=== PATIENT | female | born 1965 | race Caucasian/White ===

== ENCOUNTER 2018-06-13 09:24 | Emergency (ER) | payer BC ==
[~2018-06-13] VITALS: Ht 170.2 cm; Wt 36.8 kg
[2018-06-13 09:33] VITALS: TEMP 98
[2018-06-13 10:20] LABS: BASO % 0.6 % (0.0-2.0); EOS % 0.6 % (0-4.0); GRAN # 2.9 (1.4-6.5); HEMOGLOBIN 11.6 g/dl (12.5-16.0); LYMPH # 1.4 (1.2-3.4); MEAN CELL VOLUME 95 fl (80.0-100.0); MEAN CORPUSCULAR HEMOGLOBIN 31 pg (27.0-31.0); MEAN CORPUSCULAR HGB CONC 33 g/dl (33.0-37.0); MONO # 0.5 (0.1-0.6); MONO % 10.6 % (1.7-9.3); PLATELET COUNT 176 K/mm3 (130-400); RED BLOOD COUNT 3.74 M/mm3 (4.10-5.30); REDCELL DISTRIBUTION WIDTH-CV 15.8 % (11.5-14.5)
[2018-06-13 10:21] LABS: HEMATOCRIT 35.4 % (37.0-47.0)
[2018-06-13 11:13] LABS: ALANINE AMINOTRANSFERASE 36 U/L (9-52); ALBUMIN 3.9 gm/dL (3.5-5.0); ALKALINE PHOSPHATASE 75 U/L (50-136); ANION GAP 4 mmol/L (7-16); BILIRUBIN,TOTAL 0.7 mg/dL (0.0-1.0); CALCIUM 9.5 mg/dL (8.4-10.2); CARBON DIOXIDE 30 mmol/L (22-30); CHLORIDE 105 mmol/L (98-107); CREATININE, serum 0.88 (0.52-1.25); GLUCOSE 88 mg/dL (74-106); SODIUM 139 mmol/L (137-145); TOTAL PROTEIN 6.7 gm/dL (6.4-8.2)
[2018-06-13 11:45] LABS: COLLECTION METHOD CLEAN CATCH
[2018-06-13 11:47] LABS: C-REACTIVE PROTEIN < 0.5 mg/dL (0.0-0.9)
[2018-06-13 11:49] LABS: AST,SGOT 39 U/L (15-37); POTASSIUM 4.2 mmol/L (3.4-5.0)
[2018-06-13 11:50] LABS: BLOOD UREA NITROGEN 25 mg/dL (7-17)
[2018-06-13 11:57] LABS: MUCOUS Present /lpf; PH 7 (5-8); SQUAMOUS EPITHELIAL 0-2 /hpf; URINE APPEARANCE Hazy; URINE BACTERIA None Seen /hpf; URINE BILIRUBIN Negative (NEGATIVE); URINE BLOOD Negative (NEGATIVE); URINE COLOR Yellow; URINE GLUCOSE Negative (NEGATIVE); URINE KETONE Negative (NEGATIVE); URINE LEUKOCYTE ESTERASE Negative (NEGATIVE); URINE NITRATE Negative (NEGATIVE); URINE PROTEIN(semi-quant) Negative (NEGATIVE); URINE RBC 0-2 /hpf; URINE UROBILINOGEN Negative (NEGATIVE)
[2018-06-13 14:02] VITALS: BP 107/79; PULSE 56
== END 2018-06-13 14:04 | disposition home or self-care (01) ==
LOC: COL.ER 09:24
PROVIDERS: Emergency Medicine
DX: E46 Unspecified protein-calorie malnutrition (principal); M34.1 CR(E)ST syndrome

== ENCOUNTER → 2018-09-14 | Outpatient (CLI) | payer BC | LOC: COL.RAD 09-11 08:15 | DX: R63.4 Abnormal weight loss (principal); R11.0 Nausea; R10.9 Unspecified abdominal pain; Z53.8 Procedure and treatment not carried out for other reasons ==

== ENCOUNTER 2018-10-13 21:08 | Inpatient (IN) | payer BC ==
[~2018-10-13] VITALS: Ht 170.2 cm; Wt 44.5 kg
[2018-10-13 21:46] LABS: BASO % 0.3 % (0.0-2.0); EOS % 0.2 % (0-4.0); GRAN # 3.6 (1.4-6.5); GRAN % 61.3 % (42.2-75.2); HEMATOCRIT 48.6 % (37.0-47.0); LYMPH % 33.4 % (20.0-51.0); MEAN CELL VOLUME 96 fl (80.0-100.0); MEAN CORPUSCULAR HEMOGLOBIN 32 pg (27.0-31.0); MEAN CORPUSCULAR HGB CONC 33 g/dl (33.0-37.0); MEAN PLATELET VOLUME 12.7 fl (7.4-10.4); MONO # 0.2 (0.1-0.6); MONO % 3.9 % (1.7-9.3); PLATELET COUNT 185 K/mm3 (130-400); RED BLOOD COUNT 5.08 M/mm3 (4.10-5.30); REDCELL DISTRIBUTION WIDTH-CV 14.2 % (11.5-14.5)
[2018-10-13 21:58] LABS: ALANINE AMINOTRANSFERASE 198 U/L (9-52); ALBUMIN 4.3 gm/dL (3.5-5.0); ALKALINE PHOSPHATASE 97 U/L (50-136); ANION GAP 19 mmol/L (7-16); AST,SGOT 232 U/L (15-37); BILIRUBIN,TOTAL 1.8 mg/dL (0.0-1.0); BLOOD UREA NITROGEN 80 mg/dL (7-17); CALCIUM 10.6 mg/dL (8.4-10.2); CARBON DIOXIDE 18 mmol/L (22-30); CHLORIDE 106 mmol/L (98-107); CREATININE, serum 1.01 (0.52-1.25); GLUCOSE 49 mg/dL (74-106); MAGNESIUM 2.4 mg/dL (1.6-2.3); PHOSPHOROUS 5.3 mg/dL (2.5-4.5); POTASSIUM 4.5 mmol/L (3.4-5.0); SODIUM 143 mmol/L (137-145); TOTAL PROTEIN 6.6 gm/dL (6.4-8.2)
[2018-10-13 22:00] LABS: C-REACTIVE PROTEIN < 0.5 mg/dL (0.0-0.9)
[2018-10-13 22:52] LABS: ERYTHROCYTE SEDIMENTATION RATE 1 mm/hr (0-30)
[2018-10-13 23:53] LABS: ARTERIAL BLD GAS O2 SATURATION 96.3 % (92-100); ARTERIAL BLD GAS TCO2 CT 22.9; ARTERIAL BLOOD GAS BASE EXCESS -4.8 (-2-2); ARTERIAL BLOOD GAS HCO3 21.5 meq/L (22-26); ARTERIAL BLOOD GAS PCO2 44.5 mmHg (35-45); ARTERIAL BLOOD GAS PO2 103.8 mmHg (80-100)
[2018-10-14] VITALS (11 sets, daily range): BP systolic 78–134; BP diastolic 52–71; PULSE 36–65; TEMP 33.5
--- NOTE | 2018-10-14 00:06 | NUR ---
Arrived to the unit via stretcher. Assisted to ICU bed and attached to all monitors. Assessment complete; left foot noted to have purple to red discoloration which patient states is due to her Raynauds. Extremities are cool to touch. Pedal pulses auscultated via Dopplar. Patient reports extreme tenderness in feet, especially in the left. Tips of fingers are reddened. Right hand has some reddened spots of discoloration. Patient is alert and oriented but speech is slow and very quiet. Often required to ask patient to repeat herself. Patient is extemely malnourished and thin. Hand grasps equal but weak. Reddened intact and blanching area noted to coccyx. Core temp is 92.1. Bear Huggar in place. Will continue to monitor.
[2018-10-14 00:13] LABS: CALCIUM 9.2 mg/dL (8.4-10.2); CREATININE, serum 0.89 (0.52-1.25); MAGNESIUM 2.1 mg/dL (1.6-2.3); POTASSIUM 4.1 mmol/L (3.4-5.0)
[2018-10-14 00:14] LABS: PHOSPHOROUS 4.3 mg/dL (2.5-4.5)
[2018-10-14 00:17] LABS: INR 0.9 (0.8-3.0); PROTHROMBIN TIME 10.5 SECONDS (9.7-12.8)
[2018-10-14 00:20] LABS: PARTIAL THROMBOPLASTIN TIME 31.7 SECONDS (26.0-37.0)
[2018-10-14 00:23] LABS: TROPONIN-I 0.025 ng/mL (0.000-0.035)
--- NOTE | 2018-10-14 01:45 | NUR ---
Hospitalist at bedside to discuss code status with patient and mother. Full code status at this time.
--- NOTE | 2018-10-14 02:00 | NUR ---
Patient frequently becomes tearful. Will state that she is uncomfortable due to dry mouth, position, hunger etc, however when staff makes an attempt to find a solution to the complaint such as oral gel for dryness, mouth swab or a pillow for back discomfort patient will refuse and make statements such as "it won't work" or "I can't". Will continue to attemt to assist patient as tolerated.
[2018-10-14 02:39] LABS: CALCIUM 9.4 mg/dL (8.4-10.2); CREATININE, serum 0.93 (0.52-1.25); MAGNESIUM 2.1 mg/dL (1.6-2.3); PHOSPHOROUS 3.9 mg/dL (2.5-4.5); POTASSIUM 4.2 mmol/L (3.4-5.0)
[2018-10-14 03:10] LABS: THYROID STIMULATING HORMONE 0.729 uIU/mL (0.465-4.680)
--- NOTE | 2018-10-14 03:30 | NUR ---
ER nurse reported that patient stated she had had suicidal thoughts, but was not planning and did not want to commit suicide. This nurse asked patient about that statement and asked if she was still having suicidal thoughts or thoughts of self-harm. Patient stated she did not acutally want to commit suicide or harm herself, she just wanted the "pain to go away". Reported patient's statements to the hospitalist.
--- NOTE | 2018-10-14 03:31 | NUR ---
Patient complaining about Bear Hugger and requesting nurse to remove it. Re-educated regarding need to keep Bear Hugger on to get temperature to a normal level. Temp currently 96.3 via temp rowley. Will re-assess reducing heat when Temp is at a normal level.
[2018-10-14 04:22] LABS: BASO % 0.2 % (0.0-2.0); EOS % 0.1 % (0-4.0); GRAN # 6.5 (1.4-6.5); GRAN % 72.4 % (42.2-75.2); HEMATOCRIT 36.1 % (37.0-47.0); HEMOGLOBIN 12.1 g/dl (12.5-16.0); LYMPH # 1.9 (1.2-3.4); LYMPH % 21.1 % (20.0-51.0); MEAN CELL VOLUME 94 fl (80.0-100.0); MEAN CORPUSCULAR HEMOGLOBIN 32 pg (27.0-31.0); MEAN CORPUSCULAR HGB CONC 34 g/dl (33.0-37.0); MEAN PLATELET VOLUME 12.1 fl (7.4-10.4); MONO # 0.5 (0.1-0.6); MONO % 5.9 % (1.7-9.3); PLATELET COUNT 135 K/mm3 (130-400); RED BLOOD COUNT 3.83 M/mm3 (4.10-5.30); REDCELL DISTRIBUTION WIDTH-CV 14.1 % (11.5-14.5)
[2018-10-14 04:32] LABS: CREATININE, serum 0.82 (0.52-1.25); PHOSPHOROUS 3.6 mg/dL (2.5-4.5); POTASSIUM 4.2 mmol/L (3.4-5.0)
[2018-10-14 05:55] LABS: ARTERIAL BLD GAS O2 SATURATION 96.8 % (92-100); ARTERIAL BLD GAS TCO2 CT 28.1; ARTERIAL BLOOD GAS BASE EXCESS 2.2 (-2-2); ARTERIAL BLOOD GAS HCO3 26.8 meq/L (22-26); ARTERIAL BLOOD GAS PCO2 41.8 mmHg (35-45); ARTERIAL BLOOD GAS PO2 101.3 mmHg (80-100); ARTERIAL BLOOD GAS pH 7.43 (7.35-7.45)
--- NOTE | 2018-10-14 06:30 | NUR ---
No urine output noted from Rowley placed in ER. Hospitalist aware. Bladder scan showed >300 ml. Rowley checked and did not appear to be in the urethra. Temp sensing rowley removed and new rowley catheter replaced. received clear yellow urine output upon placement. Axillary temp 97.5 at this time. Will continue to monitor.
--- NOTE | 2018-10-14 07:00 | NUR ---
ALAYNA Hewitt at bedside at this time.
[2018-10-14 07:54] LABS: CALCIUM 8.9 mg/dL (8.4-10.2); CREATININE, serum 0.83 (0.52-1.25); PHOSPHOROUS 3.4 mg/dL (2.5-4.5); POTASSIUM 4.3 mmol/L (3.4-5.0)
--- NOTE | 2018-10-14 08:00 | NUR ---
Dr. Young rounds at this time. Orders as entered CPOE.
[2018-10-14 08:12] LABS: COLLECTION METHOD CLEAN CATCH
[2018-10-14 08:27] LABS: HYALINE CAST >12 /lpf; MUCOUS Present /lpf; PH 5 (5-8); SQUAMOUS EPITHELIAL None Seen /hpf; URINE APPEARANCE Hazy; URINE BACTERIA Rare /hpf; URINE BILIRUBIN Negative (NEGATIVE); URINE BLOOD 2+ (NEGATIVE); URINE COLOR Yellow; URINE GLUCOSE 1+ (NEGATIVE); URINE KETONE Trace (NEGATIVE); URINE LEUKOCYTE ESTERASE Negative (NEGATIVE); URINE NITRATE Negative (NEGATIVE); URINE PROTEIN(semi-quant) Negative (NEGATIVE); URINE UROBILINOGEN Negative (NEGATIVE)
--- NOTE | 2018-10-14 08:30 | NUR ---
Patient with noted bradycardia on bedside monitor. See completed EKG and telemetry record. Marcelina, WEATHERSEAL TECHNICIAN at bedside and VORB for intervention. Patient attached to zoll leads and defib pads at this time as precautionary measure. Patient remains alert and oriented. Care ongoing.
--- NOTE | 2018-10-14 08:31 | NUR ---
Neosynephrine gtt stopped per VORB by ALAYNA Hewitt at bedside secondary to patient's bradycardia.
--- NOTE | 2018-10-14 08:34 | NUR ---
Dopamine gtt started a 2mcg/kg/hr per VORB from ALAYNA Hewitt at bedside.
--- NOTE | 2018-10-14 08:39 | NUR ---
Dopamine titrated per VORB by ALAYNA Hewitt.
--- NOTE | 2018-10-14 08:47 | NUR ---
Dr. Gonzalez present for consult. Orders as entered CPOE and VORB.
--- NOTE | 2018-10-14 08:49 | NUR ---
Dopamine titrated per bedside VORB by ALAYNA Hewitt.
--- NOTE | 2018-10-14 08:58 | NUR ---
Dr. Kahn present for consult.
[2018-10-14 09:58] LABS: CALCIUM 8.7 mg/dL (8.4-10.2); CREATININE, serum 0.81 (0.52-1.25); MAGNESIUM 1.9 mg/dL (1.6-2.3); PHOSPHOROUS 3.1 mg/dL (2.5-4.5)
--- NOTE | 2018-10-14 10:17 | NUR ---
Dr. Smith present for consult. Orders as entered CPOE.
[2018-10-14 10:23] LABS: CALCIUM 8.4 mg/dL (8.4-10.2); CREATININE, serum 0.79 (0.52-1.25); MAGNESIUM 1.9 mg/dL (1.6-2.3); POTASSIUM 3.9 mmol/L (3.4-5.0)
[2018-10-14 13:15] LABS: CALCIUM 8.6 mg/dL (8.4-10.2); CREATININE, serum 0.76 (0.52-1.25); MAGNESIUM 2.6 mg/dL (1.6-2.3); PHOSPHOROUS 2.9 mg/dL (2.5-4.5); POTASSIUM 4.1 mmol/L (3.4-5.0)
[2018-10-14 15:12] LABS: CALCIUM 8.7 mg/dL (8.4-10.2); CREATININE, serum 0.82 (0.52-1.25); MAGNESIUM 2.4 mg/dL (1.6-2.3); PHOSPHOROUS 2.8 mg/dL (2.5-4.5); POTASSIUM 4.1 mmol/L (3.4-5.0)
[2018-10-14 16:27] LABS: CALCIUM 8.5 mg/dL (8.4-10.2); CREATININE, serum 0.72 (0.52-1.25); MAGNESIUM 2.2 mg/dL (1.6-2.3); PHOSPHOROUS 2.9 mg/dL (2.5-4.5); POTASSIUM 3.9 mmol/L (3.4-5.0)
--- NOTE | 2018-10-14 17:17 | NUR ---
Dr. Julio notified of consult.
[2018-10-14 19:28] LABS: CALCIUM 8.5 mg/dL (8.4-10.2); CREATININE, serum 0.69 (0.52-1.25); MAGNESIUM 2.3 mg/dL (1.6-2.3); PHOSPHOROUS 2.8 mg/dL (2.5-4.5); POTASSIUM 3.8 mmol/L (3.4-5.0)
--- NOTE | 2018-10-14 19:45 | NUR ---
Assessment complete; patient alert and oriented. Able to follow all commands correctly. When asked questions patient would not verbalize response, but wanted to write. Able to write answers to questions appropriately. Reports discomfort from NG tube. Re-educated on importance of feeding tube for nutrition. Family at bedside and encouraged patient to be cooperative and accepting of cares. Repositioned at this time. 3 pea sized reddened areas along spine, no redness noted to coccyx. Repositioning q 2hrs to prevent bed sores.
[2018-10-14 20:53] LABS: CALCIUM 8.6 mg/dL (8.4-10.2); CREATININE, serum 0.65 (0.52-1.25); MAGNESIUM 2.2 mg/dL (1.6-2.3); PHOSPHOROUS 2.6 mg/dL (2.5-4.5); POTASSIUM 4.3 mmol/L (3.4-5.0)
--- NOTE | 2018-10-14 21:05 | NUR ---
HR occasionally down to 37-39; Dopamine titrated up to 12 mcg/kg/min. Current BP 111/65. Hospitalist notified; requested to call cardiology.
[2018-10-15] VITALS (8 sets, daily range): BP systolic 81–121; BP diastolic 54–74; PULSE 36–45; TEMP 97–97.8
--- NOTE | 2018-10-15 00:10 | NUR ---
Patient alert and oriented. Has been more receptive to care this shift than the previous night. Allowing nurse to repostition and appears to comprehend the need for the cares and interventions being provided in her care. .
[2018-10-15 00:27] LABS: CALCIUM 8.6 mg/dL (8.4-10.2); CREATININE, serum 0.64 (0.52-1.25); MAGNESIUM 2.1 mg/dL (1.6-2.3); PHOSPHOROUS 2.4 mg/dL (2.5-4.5); POTASSIUM 3.8 mmol/L (3.4-5.0)
--- NOTE | 2018-10-15 02:15 | NUR ---
Assisted with repositioning. Patient reporting discomfort in throat from NG tube, asking if it can come out. This nures re-educated regarding need to keep in the NG to deliver nutrition to help with gaining strength and improving outcome. Stated that NG will need to be in place until another route for nutrition can be established.
--- NOTE | 2018-10-15 04:05 | NUR ---
Patient had 3 second pause. HR returned to baseline low 40's afterwards. BP stable. Hospitalist notified. Will continue to monitor.
[2018-10-15 04:22] LABS: HEMOGLOBIN 11.9 g/dl (12.5-16.0); MEAN CELL VOLUME 95 fl (80.0-100.0); MEAN CORPUSCULAR HEMOGLOBIN 32 pg (27.0-31.0); MEAN CORPUSCULAR HGB CONC 34 g/dl (33.0-37.0); MEAN PLATELET VOLUME 11.2 fl (7.4-10.4); PLATELET COUNT 133 K/mm3 (130-400); RED BLOOD COUNT 3.73 M/mm3 (4.10-5.30); REDCELL DISTRIBUTION WIDTH-CV 14.3 % (11.5-14.5)
[2018-10-15 04:27] LABS: HEMATOCRIT 35.5 % (37.0-47.0)
[2018-10-15 04:35] LABS: ALBUMIN 3.1 gm/dL (3.5-5.0); BILIRUBIN,TOTAL 1.3 mg/dL (0.0-1.0); CALCIUM 8.6 mg/dL (8.4-10.2); CREATININE, serum 0.6 (0.52-1.25); PHOSPHOROUS 2.9 mg/dL (2.5-4.5); POTASSIUM 4.1 mmol/L (3.4-5.0); TOTAL PROTEIN 5.4 gm/dL (6.4-8.2)
[2018-10-15 04:55] LABS: PRE ALBUMIN 14.8 mg/dL (17.6-36.0)
--- NOTE | 2018-10-15 05:00 | NUR ---
Assisted with bedbath. Tolerated well.
[2018-10-15 05:15] LABS: BAND 9 % (0-10); LYMPHOCYTE 4 % (20.0-51.0); NEUTROPHILS 84 % (42.0-75.2); PLATELET ESTIMATE NORMAL (NORMAL)
--- NOTE | 2018-10-15 07:35 | NUR ---
Bedside report given to EMIL Barnes and EMIL Wiley. Patient care transfered.
--- NOTE | 2018-10-15 09:54 | NUR ---
BEBETO met with the patient and patient's mother, Janice, to discuss discharge plan. The patient lives in [place] with her mother and father (Marcelo). She reports needing assistance with ADLs prior to hospitalization and has a cane. She states that she started declining three days ago and that her mother has been helping her with ADLs. The patient's PCP is Dr. Augustina Che and she receives her medications at the [facility]. Her mother reports no difficulties obtaining her meds. The patient does not have advanced directives in EMR, but she states she believes she has a Living Will at home. Her mother plans to look for that Living Will and then bring it to the hospital. The patient and her mother were interested in obtaining a form for DPOA-HC. BEBETO provided. PT/OT and a psych consult have been ordered. The patient may tentatively have a peg tube placed. SW to continue to follow to ensure a safe discharge.
--- NOTE | 2018-10-15 10:11 | NUR ---
Pt tube feed residual less than five. Tube feed increased to 20ml/hr. Will continue to montior.
--- NOTE | 2018-10-15 12:28 | NUR ---
First visit from the channel cementer outsole machine. No needs right now.
[2018-10-15 19:08] LABS: CALCIUM 8.7 mg/dL (8.4-10.2); CREATININE, serum 0.51 (0.52-1.25); MAGNESIUM 1.9 mg/dL (1.6-2.3); PHOSPHOROUS 2.1 mg/dL (2.5-4.5); POTASSIUM 3.5 mmol/L (3.4-5.0)
--- NOTE | 2018-10-15 20:30 | NUR ---
Patient reporting discomfort from the NG tuve. Reminded that Peg tube will be placed tomorrow and NG will be removed. Family at bedside during assessment. Patient alert and cooperative during assessment, however she does not like to verbalize answers due to discomfort in throat from NG. Will give short one word answeres or attempts to answer with hand gestures if possible. Assisted with repositioning. Will continue to monitor.
[2018-10-16] VITALS (8 sets, daily range): BP systolic 84–104; BP diastolic 57–70; PULSE 36–52; TEMP 94.6–97.9
--- NOTE | 2018-10-16 00:50 | NUR ---
Assisted with repositioning, and provided tanisha-care. Tube feeding discontinued due to NPO status at midnight. Tolerating tube feedings well with minimal residual. Will continue to monitor.
--- NOTE | 2018-10-16 04:15 | NUR ---
Reporting some back discomfort; assisted to a position of comfort in bed. Also reporting pain to her left foot. States the pain is from her Reynauds and is per is usual,and comes and goes. Removed blankets from feet as patient states the weight of the blankets causes discomfort. Denies any other needs at this time. Will continue to monitor.
[2018-10-16 04:46] LABS: HEMATOCRIT 32.3 % (37.0-47.0); HEMOGLOBIN 10.6 g/dl (12.5-16.0); MEAN CELL VOLUME 96 fl (80.0-100.0); MEAN CORPUSCULAR HEMOGLOBIN 31 pg (27.0-31.0); MEAN CORPUSCULAR HGB CONC 33 g/dl (33.0-37.0); PLATELET COUNT 107 K/mm3 (130-400); RED BLOOD COUNT 3.38 M/mm3 (4.10-5.30); REDCELL DISTRIBUTION WIDTH-CV 14.5 % (11.5-14.5)
[2018-10-16 04:48] LABS: PHOSPHOROUS 2.4 mg/dL (2.5-4.5); POTASSIUM 3.9 mmol/L (3.4-5.0)
[2018-10-16 04:51] LABS: CALCIUM 8.8 mg/dL (8.4-10.2); CREATININE, serum 0.47 (0.52-1.25)
[2018-10-16 05:39] LABS: BAND 5 % (0-10); LYMPHOCYTE 1 % (20.0-51.0); NEUTROPHILS 91 % (42.0-75.2); PLATELET ESTIMATE DECREASED (NORMAL)
--- NOTE | 2018-10-16 07:16 | NUR ---
Bedside report given to EMIL Wiley. Patient care transfered.
--- NOTE | 2018-10-16 15:07 | NUR ---
The patient had a peg tube placed today, 10/16. PT/OT are still monitoring the patient's progress for recommendations. SW to continue to follow.
--- NOTE | 2018-10-16 17:10 | NUR ---
Pt's BLE are blue, red, warm, painful and swollen. Which is baseline for Pt d/t autoimmune disease. R leg less reddened and painful than left. Weak pulses palpable in both. Pt has peg site to LL abd. Dressing C/D/I. Dressing not removed d/t day 0 post op. bedside this afternoon to assess. Will keep clamped till tomorrow then can restart TF 24 hours post placement.
--- NOTE | 2018-10-16 20:23 | NUR ---
Unable to obtain oral or axillary temp. Rectal temp 94.6. Placed warm blankets. Attempted to call hospitalist, no reply.
--- NOTE | 2018-10-16 21:38 | NUR ---
Re-checked rectal temp after placing warm blankets; tara 94.7. Called hospitalst. Will place on javon huggar and warm fluids and insert a rectal temp probe.
--- NOTE | 2018-10-16 22:39 | NUR ---
Warmed fluids tara running at 42 degrees C. Nisa Butler on. Rectal temp 35.1. Will continue to monitor.
--- NOTE | 2018-10-16 23:47 | NUR ---
Notified hospitalist that patient has been hypotensive with MAPs less than 65. urine output has been less than 30/hr. Requested to change status to ICU and call cardiology.
--- NOTE | 2018-10-16 23:59 | NUR ---
Called [facility] to notify about status change to ICU.
[2018-10-17] VITALS (11 sets, daily range): BP systolic 77–104; BP diastolic 54–69; PULSE 43–61; TEMP 97.2–98.8
--- NOTE | 2018-10-17 | NUR ---
Right radial site checked; clean dry and intact with no hematoma. Pulse +2. Denies any pain or shortness of breath. Reports having an occasional brief episode of palpitations. No other complaints. Removed all air from TR band. Left in place with arm board to help as a reminer to not put weight on the wrist.
--- NOTE | 2018-10-17 00:30 | NUR ---
Rectal temp 97.5. Turned Nisa hugger down to medium setting. Assisted with repositioning. Patient follows commands and answers questions by shaking head yes or no but did not verbalize responses to this nurse.
--- NOTE | 2018-10-17 02:28 | NUR ---
Patient reported to this nurse that she "can't go on". Asked to elaborate but patient just "I'm going to ". Explained to patient that we were doing everything we can to help her get better. Although she would have to allow us to continue to intervene to help her recover. Requested to call her mom. This nurse and patient left voicemail with the mom. Awaiting a return call. Offered anxiety and pain medication but patient refused. This nurse asked if she was having any thoughs of self harm or suicidal thoughts. Patient stated that she was too weak to hurt herself. When pressed if she was having thoughts of self harm patient said "no". This nurse asked "what do you want me to do?" and patient did not respond.
--- NOTE | 2018-10-17 02:46 | NUR ---
Temp 37.3. Turned javon hugger off; will monitor how patient tolerates.
[2018-10-17 06:06] LABS: BASO % 0.1 % (0.0-2.0); GRAN # 8.1 (1.4-6.5); GRAN % 88.1 % (42.2-75.2); HEMOGLOBIN 10.3 g/dl (12.5-16.0); LYMPH # 0.5 (1.2-3.4); LYMPH % 5.8 % (20.0-51.0); MEAN CELL VOLUME 97 fl (80.0-100.0); MEAN CORPUSCULAR HEMOGLOBIN 31 pg (27.0-31.0); MEAN CORPUSCULAR HGB CONC 32 g/dl (33.0-37.0); MEAN PLATELET VOLUME 12.5 fl (7.4-10.4); MONO # 0.5 (0.1-0.6); MONO % 5.7 % (1.7-9.3); PLATELET COUNT 92 K/mm3 (130-400); RED BLOOD COUNT 3.29 M/mm3 (4.10-5.30); REDCELL DISTRIBUTION WIDTH-CV 14.5 % (11.5-14.5)
[2018-10-17 06:08] LABS: HEMATOCRIT 31.8 % (37.0-47.0)
[2018-10-17 06:20] LABS: MAGNESIUM 1.8 mg/dL (1.6-2.3)
[2018-10-17 06:25] LABS: ALBUMIN 2.6 gm/dL (3.5-5.0); CALCIUM 8.8 mg/dL (8.4-10.2); CREATININE, serum 0.53 (0.52-1.25); POTASSIUM 3.6 mmol/L (3.4-5.0); TOTAL PROTEIN 4.7 gm/dL (6.4-8.2)
--- NOTE | 2018-10-17 07:39 | NUR ---
Bedside report given to EMIL Amezquita. Patient care transfered.
--- NOTE | 2018-10-17 08:00 | NUR ---
Shift assessment complete at this time. Plan of care reviewed at bedside with patient et family. Additional time taken to address any other needs or concerns. Vitals stable at this time. Pt reports 10/10 pain, however, refuses PRN pain medication stating "I know it won't work". Will address with attending physician in rounds. Bed in low position, call light within reach, will continue to monitor.
--- NOTE | 2018-10-17 10:55 | NUR ---
BEBETO attended clinical rounds. The patient is to start peg tube feedings today, 10/17. BEBETO then followed up with the patient, patient's mother (Janice, "Darlene"), and her two aunts to discuss discharge plan. The patient's mother reports that she would like for the patient to return home with her and home health, if able to, upon discharge. The patient's two aunts report that they will help out and provide support too. BEBETO provided the patient's mother with Medicare.gov's list of home health agencies that serve [place]. The patient and patient's mother plan to look over the list. The patient did complete a DPOA-HC. She designated her mother and brother, Rohit Florence. BEBETO and the patient's RN, Alirio, witnessed the patient's signature. The patient's mother was provided with the original and some copies. A copy was placed in the patient's chart. BEBETO to continue to follow.
--- NOTE | 2018-10-17 12:00 | NUR ---
Shift reassessment complete at this time. No changes from previous assessment noted. Pt reports slight improvement in overall pain afte administration of PRN Motrin. Will continue to monitor pain management. Vitals stable at this time. on Dopamine gtt. Bed in low position, call light within reach, will continue to monitor.
--- NOTE | 2018-10-17 16:00 | NUR ---
Shift reassessment complete at this time. No changes from previous assessments noted. Vitals stable at this time. Dopamine gtt continues. Pt tolerating tube feedings well with no residual or complaints of fullness. Pt reports pain is steadily improving and denies need for any further intervention at this time. Bed in low position, call light within reach, will continue to monitor.
--- NOTE | 2018-10-17 19:19 | NUR ---
Bedside report given to EMIL Candelario.
--- NOTE | 2018-10-17 19:50 | NUR ---
Patient asssessment completed and charted at this time, please see documentation for details. patient resting in bed, denying needing cares. Famliy at bedside, will continue to monitor.
[2018-10-18] VITALS (7 sets, daily range): BP systolic 90–99; BP diastolic 58–72; PULSE 52–59; TEMP 36.5–36.6
--- NOTE | 2018-10-18 04:00 | NUR ---
Patient continues to refuse turn and refuse pain medication for throat. Reeducated, will continue to monitor.
[2018-10-18 05:13] LABS: BASO % 0.2 % (0.0-2.0); GRAN # 5.4 (1.4-6.5); GRAN % 88.3 % (42.2-75.2); HEMATOCRIT 31.9 % (37.0-47.0); HEMOGLOBIN 10.6 g/dl (12.5-16.0); LYMPH # 0.5 (1.2-3.4); LYMPH % 7.4 % (20.0-51.0); MEAN CELL VOLUME 96 fl (80.0-100.0); MEAN CORPUSCULAR HEMOGLOBIN 32 pg (27.0-31.0); MEAN CORPUSCULAR HGB CONC 33 g/dl (33.0-37.0); MEAN PLATELET VOLUME 12.4 fl (7.4-10.4); MONO # 0.2 (0.1-0.6); MONO % 3.6 % (1.7-9.3); PLATELET COUNT 87 K/mm3 (130-400); RED BLOOD COUNT 3.34 M/mm3 (4.10-5.30); REDCELL DISTRIBUTION WIDTH-CV 14.2 % (11.5-14.5)
[2018-10-18 05:25] LABS: ALBUMIN 2.5 gm/dL (3.5-5.0); CALCIUM 8.6 mg/dL (8.4-10.2); CREATININE, serum 0.55 (0.52-1.25); MAGNESIUM 1.8 mg/dL (1.6-2.3); PHOSPHOROUS 2.4 mg/dL (2.5-4.5); POTASSIUM 3.7 mmol/L (3.4-5.0); TOTAL PROTEIN 4.7 gm/dL (6.4-8.2)
[2018-10-18 05:38] LABS: BILIRUBIN UNCONJUGATED 0.9 mg/dL (0.0-1.1); BILIRUBIN,TOTAL 0.8 mg/dL (0.0-1.0)
--- NOTE | 2018-10-18 07:00 | NUR ---
REPORT RECEIVED FROM GREG STEIN. CARE ASSUMED.
--- NOTE | 2018-10-18 10:06 | NUR ---
SW attended clinical rounds. The patient has been off the dopamine drip since 1999 last night. The plan is for the patient to transfer up to the floor today, 10/18. The hospitalist discussed the possible need for post-acute rehab, depending on how the patient progresses with therapy, once she transfers up to the floor. The patient's mother reports how the patient would like to return home upon discharge. SW to continue to follow and monitor PT/OT recommendations.
--- NOTE | 2018-10-18 11:35 | NUR ---
OFFERED TO GIVE PT MOTRIN FOR GENERALIZED ACHINESS. PT REFUSED. OFFERED TO WASH PT'S HAIR AND GIVE HER A BATH. PT REFUSED AT THIS TIME. PT C/O DRY MOUTH. OFFERED SWABS WITH WATER AND MOUTH MOISTURIZER. PT REFUSED.
--- NOTE | 2018-10-18 12:09 | NUR ---
ATTEMPTED TO CALL REPORT. RN DISCHARGING A PT AT THIS TIME.
--- NOTE | 2018-10-18 12:32 | NUR ---
REPORT GIVEN TO YUMIKO STEIN ON MEDICAL FLOOR.
--- NOTE | 2018-10-18 12:53 | NUR ---
RAFI DIAZ, AND JOSE RN, BROUGHT MEDICAL FLOOR BED. PT TRANSFERRED TO MEDICAL FLOOR BED. RECTAL THERMOMETER REMOVED. PT TRANSFERRED TO MEDICAL ROOM 312 BY LIZ. PT'S BELONGINGS TRANSFERRED WITH PATIENT ALONG WITH KANGAROO PUMP AND NEW TUBE FEED AND TUBING.
--- NOTE | 2018-10-18 15:08 | NUR ---
Received report from Kailey in the ICU. Patient transported to room 312 via bed. Patient is reported to not get out of bed. She is currently laying on pressure overlay mattress. Patient is observed to be thin and frail. Skin was checked. Does have one area to left inner leg to have mepilex dressing covering it. Dressing removed, small dried, scabbed area is observed. Mother states it is a calcified area which she gets occasionally. Mother requests that area be open to air. Has no other skin issues. Feet are observed to be purple/white in color and are edematous. This is her usual appearance. Feet are elevated with pillows and patient is turned toward right side. Patient frequently moans when moved and was offered PRN pain medication and she declined stating she was tired of taking them. Lungs are clear, patient grimaces when touched with the stethoscope. Heart rate is regular. Is receiving feeding to peg tube, site is clean and dry. Abdomen is soft, bowel sounds are active. Villarreal catheter is to dependent drainage. Securement device is in place. Has IV to left AC, this was discontinued, dressing is soiled. Triple lumen IJ is noted to right, dressing is clean, dry and intact. Patient will not move for staff, states she cant. Family remains at bedside. Call light is within reach.
--- NOTE | 2018-10-18 17:35 | NUR ---
Patient remains in bed, continues to be turned. Did request motrin for generalized pain. Administered via feeding tube without difficulty. Family at bedside. Personal items and call light is within reach.
[2018-10-19 03:48] VITALS: BP 96/64; PULSE 58; TEMP 97.5
[2018-10-19 06:14] LABS: BASO % 0.2 % (0.0-2.0); EOS % 0.2 % (0-4.0); GRAN # 3.9 (1.4-6.5); GRAN % 79.5 % (42.2-75.2); HEMATOCRIT 29.5 % (37.0-47.0); HEMOGLOBIN 9.9 g/dl (12.5-16.0); LYMPH # 0.6 (1.2-3.4); LYMPH % 13.1 % (20.0-51.0); MEAN CELL VOLUME 96 fl (80.0-100.0); MEAN CORPUSCULAR HEMOGLOBIN 32 pg (27.0-31.0); MEAN CORPUSCULAR HGB CONC 34 g/dl (33.0-37.0); MEAN PLATELET VOLUME 12.9 fl (7.4-10.4); MONO # 0.3 (0.1-0.6); MONO % 6.6 % (1.7-9.3); PLATELET COUNT 87 K/mm3 (130-400); RED BLOOD COUNT 3.08 M/mm3 (4.10-5.30); REDCELL DISTRIBUTION WIDTH-CV 13.8 % (11.5-14.5)
[2018-10-19 06:24] LABS: CALCIUM 8.4 mg/dL (8.4-10.2); CREATININE, serum 0.47 (0.52-1.25); MAGNESIUM 1.8 mg/dL (1.6-2.3); PHOSPHOROUS 2.2 mg/dL (2.5-4.5); POTASSIUM 3.6 mmol/L (3.4-5.0)
[2018-10-19 07:35] VITALS: BP 97/66; PULSE 54; TEMP 97.7
--- NOTE | 2018-10-19 07:58 | NUR ---
millinery worker spoke with Nilsa, general manager road production, at [facility] as Dr Trivedi is patient's primary care provider. Nilsa states they will follow closely after discharge.
--- NOTE | 2018-10-19 10:30 | NUR ---
Patient is upset, stating that she did not want feedings or anything anymore. Wanted to have tube feeding shut off. Explained that feeding would be disconnected and tube flushed with water, she quickly stated, "no," and asked that feeding be turned down to 10 ml/hr. Notified providers of patients request.
--- NOTE | 2018-10-19 11:20 | NUR ---
Patient is in bed, parents are at bedside. Patient had verbalized that her stomach started hurting when therapy went to see her. She states she can not handle the feeding at 20 mL/hr. Was shown the amount by visualizing a comparason to a med cup. She shook her head and stated she couldn't do it and wanted the feeding shut off. I spoke with providers and they stated it could be shut off until they saw her on rounds. I gave her the option and she stated she would like it turned off. I did explain that tube would have to be flushed after disconnection, patient then changed her mind and requested amount per hour be decreased instead. She did report she was having pain at the peg insertion site and rowley. Areas cleansed and drain sponge placed to peg. Patient did not tolerate this activity well. Was also repositioned during that time. Provider is currently in to see patient.
[2018-10-19 12:10] VITALS: BP 98/60; PULSE 53; TEMP 98
[2018-10-19 17:00] VITALS: BP 103/63; PULSE 64; TEMP 98.1
[2018-10-19 19:38] VITALS: BP 104/65; PULSE 56; TEMP 98.4
[2018-10-19 23:15] VITALS: BP 102/63; PULSE 52; TEMP 98.3
[2018-10-20 03:22] VITALS: BP 99/64; PULSE 56; TEMP 97.5
[2018-10-20 07:26] VITALS: BP 106/70; PULSE 57; TEMP 98
[2018-10-20 07:38] LABS: BASO % 0.2 % (0.0-2.0); EOS % 0.4 % (0-4.0); GRAN # 3.8 (1.4-6.5); GRAN % 79.9 % (42.2-75.2); HEMOGLOBIN 10.7 g/dl (12.5-16.0); LYMPH # 0.6 (1.2-3.4); LYMPH % 13.4 % (20.0-51.0); MEAN CELL VOLUME 95 fl (80.0-100.0); MEAN CORPUSCULAR HEMOGLOBIN 32 pg (27.0-31.0); MEAN CORPUSCULAR HGB CONC 33 g/dl (33.0-37.0); MEAN PLATELET VOLUME 12.7 fl (7.4-10.4); MONO # 0.3 (0.1-0.6); MONO % 5.5 % (1.7-9.3); PLATELET COUNT 104 K/mm3 (130-400); RED BLOOD COUNT 3.37 M/mm3 (4.10-5.30); REDCELL DISTRIBUTION WIDTH-CV 13.5 % (11.5-14.5)
[2018-10-20 07:43] LABS: HEMATOCRIT 32.1 % (37.0-47.0)
[2018-10-20 07:49] LABS: CALCIUM 8.5 mg/dL (8.4-10.2); CREATININE, serum 0.52 (0.52-1.25); POTASSIUM 3.5 mmol/L (3.4-5.0)
--- NOTE | 2018-10-20 11:09 | NUR ---
Pt assessment complete. Pt laying in bed upon entry, her mother is at bedside. Pt is A/O x3, but very guarded and has minimal responses to questions. Pt winces with any touch of stethoscope. When attempting to give patient meds through her PEG tube she attempts to refuse stating "you can't put that much in my stomach at once". Explained to the patient how much she would be getting and she eventually agrees with the encouragement from her mother. Pt states she is having the "same pain" she's been having all over, PRN Motrin administered. Tube feedings infusing at 10mls/hr. PEG tube site CDI, no redness or edema present to site. Pt refusing repositioning at this time. POC discussed with patient who verbalizes understanding. No needs at this time. Call light within reach.
[2018-10-20 11:38] VITALS: BP 98/63; PULSE 55; TEMP 97.4
[2018-10-20 12:04] LABS: MAGNESIUM 1.9 mg/dL (1.6-2.3); PHOSPHOROUS 2.9 mg/dL (2.5-4.5)
--- NOTE | 2018-10-20 12:46 | NUR ---
This nurse asked patient if motrin helped relieve pain, patient states "I don't know" and does not say anything following. Explained I was giving her another bag of potassium, patient sighs and looks away. No needs, father at bedside.
--- NOTE | 2018-10-20 14:47 | NUR ---
ENCOURAGED PT TO LET NURSING GRADUALLY INCREASE TUBE FEEDING RATE PER ORDERS. PT IS RELUCTANT AND SIGHS, APPEARS TEARFUL. MOTHER AT BEDSIDE IS ENCOURAGING PT TO ATTEMPT THE INCREASED RATE. PT AND MOTHER ARE IN AGREEMENT TO INCREASE TUBE FEEDING RATE TO 15ML/HR PER PUMP. RATE INCREASED AT THIS TIME.
[2018-10-20 17:23] VITALS: BP 91/58; PULSE 54; TEMP 97.8
--- NOTE | 2018-10-20 18:26 | NUR ---
While giving patient her medication through the PEG tube, patient requesting to have her feedings turned down to 10ml/hr. Pt states "it's just a lot going into my stomach today", denies N/V. Verified with patient that the goal rate is to have feeding at 20ml/hr. Pt verbalizes understanding and requests to have it turned down. Rate decreased at this time.
[2018-10-20 19:17] VITALS: BP 93/61; PULSE 53; TEMP 97.9
--- NOTE | 2018-10-20 22:12 | NUR ---
PATIENT REPOSITIONED AND GOWN AND LINENS CHANGED. REFUSED ORAL CARE. MOANING AND CRYING DURING CARE. DENIES NEEDING MEDICATION FOR PAIN. REFUSED SCDS BILATERALLY. SEE EMAR FOR MEDICATIONS ADMINISTERED. REFUSED STOOL SOFTNER. ZERO RESIDUAL FORM PEG TUBE. DRAINAGE SPONGE CLEAN DRY AN INTACT. PATIENT DENIES C/O NAUSEA OR ABD PAIN BUT BECOMES VERY ANXIOUS WHEN MEDICATION GIVEN AND FLUSHED WITH WATER STATING "IT IS JUST TO MUCH". MEDICATION X 1 ADMINISTERED VIA PEG TUBE WITH A TOTAL OF 60 MLS OF WATER. MOTHER IN ROOM UNTIL ABOUT 2100. DENIES QUESTIONS OR CONCERNS.
[2018-10-20 23:20] VITALS: BP 104/59; PULSE 62; TEMP 97.9
[2018-10-21 03:43] VITALS: BP 99/60; PULSE 59; TEMP 97.8
[2018-10-21 06:09] LABS: EOS % 0.9 % (0-4.0); GRAN # 3.6 (1.4-6.5); GRAN % 78.8 % (42.2-75.2); HEMOGLOBIN 11.2 g/dl (12.5-16.0); LYMPH # 0.5 (1.2-3.4); LYMPH % 11.8 % (20.0-51.0); MEAN CELL VOLUME 93 fl (80.0-100.0); MEAN CORPUSCULAR HEMOGLOBIN 31 pg (27.0-31.0); MEAN CORPUSCULAR HGB CONC 34 g/dl (33.0-37.0); MEAN PLATELET VOLUME 12.1 fl (7.4-10.4); MONO # 0.4 (0.1-0.6); MONO % 8.1 % (1.7-9.3); PLATELET COUNT 127 K/mm3 (130-400); RED BLOOD COUNT 3.58 M/mm3 (4.10-5.30); REDCELL DISTRIBUTION WIDTH-CV 13.2 % (11.5-14.5)
[2018-10-21 06:10] LABS: HEMATOCRIT 33.4 % (37.0-47.0)
[2018-10-21 06:17] LABS: CALCIUM 8.4 mg/dL (8.4-10.2); CREATININE, serum 0.53 (0.52-1.25); POTASSIUM 3.6 mmol/L (3.4-5.0)
--- NOTE | 2018-10-21 08:00 | NUR ---
Pt assessment complete. Pt is laying in bed upon entry, she is A/O x3. Her breathing is even and unlabored on RA. Pt denies SOB. Pt is tearful this morning, unable to specify what's bothering her. Pt stating the feeding pump is "yelling at me, nothing is coming up but it is screaming". Pt also stating that she does not feel as if she will ever be back to a "normal person", that things are going to get "worse before they get better". Encouragement given. Discussed with patient the POC and reasoning for all the interventions that were being done, tube feeding, PT/OT, repositioning, medications etc. Explained that all of these things are done for the interest of the patient improving and gaining back her mobility and normal day funtioning. Patient in agreeance that these things are important and states she wants this for herself as well. Pt also states she is worried if she gets a pressure ulcer that it will never heal, again nutrition and respositioning discussed with her. Pt in agreeance to try and increase tube feedings through the day. No further needs at this time. Call light within reach.
[2018-10-21 08:32] VITALS: BP 98/58; PULSE 52; TEMP 97.8
[2018-10-21 12:03] VITALS: BP 105/67; PULSE 53; TEMP 97.4
--- NOTE | 2018-10-21 12:14 | NUR ---
Pt reporting her catheter is leaking, bed dry to the touch, patient states she has been holding her pee. Purpose and use of a catheter explained to the patient. Encouraged to relax her bladder and the catheter will drain. Patient agreeable to sit up in bed, put in chair position. Now has the 2cal Jevity tube feeding, agreeable to increasing rate to 15mls/hr. No needs at this time. Call light within reach.
[2018-10-21 17:24] VITALS: BP 104/64; PULSE 50; TEMP 97.5
--- NOTE | 2018-10-21 18:09 | NUR ---
This nurse spent approximately 15 minutes with the patient speaking about the tube feedings. Pt requesting to have the tube feedings turned off. Pt stating "my family dynamic has changed and they are no longer part of things". Pt reports she feels that there too much going into her at once. I re explained the volume of feedings that the patient was recieving and explained that we are not to goal or meeting basic nutritional needs. Pt does not seem receptive to information. Plan to keep feedings at 15mls/hr, to think about fci goals and develop a plan with the doctor tomorrow. Call light within reach.
[2018-10-21 19:10] VITALS: BP 93/64; PULSE 48; TEMP 97.5
[2018-10-21 23:33] VITALS: BP 98/66; PULSE 74; TEMP 97.2
[2018-10-22] VITALS (9 sets, daily range): BP systolic 70–108; BP diastolic 40–66; PULSE 50–76; TEMP 97.1–98.2
[2018-10-22 06:23] LABS: BASO % 0.2 % (0.0-2.0); EOS % 0.5 % (0-4.0); GRAN # 3.2 (1.4-6.5); GRAN % 75.2 % (42.2-75.2); HEMOGLOBIN 11.6 g/dl (12.5-16.0); LYMPH # 0.5 (1.2-3.4); LYMPH % 11.6 % (20.0-51.0); MEAN CELL VOLUME 94 fl (80.0-100.0); MEAN CORPUSCULAR HEMOGLOBIN 32 pg (27.0-31.0); MEAN CORPUSCULAR HGB CONC 34 g/dl (33.0-37.0); MONO # 0.5 (0.1-0.6); MONO % 11.8 % (1.7-9.3); PLATELET COUNT 146 K/mm3 (130-400); RED BLOOD COUNT 3.65 M/mm3 (4.10-5.30); REDCELL DISTRIBUTION WIDTH-CV 13.1 % (11.5-14.5)
[2018-10-22 06:24] LABS: HEMATOCRIT 34.3 % (37.0-47.0)
[2018-10-22 06:26] LABS: ALBUMIN 2.9 gm/dL (3.5-5.0); BILIRUBIN,TOTAL 1.1 mg/dL (0.0-1.0); CALCIUM 8.8 mg/dL (8.4-10.2); CREATININE, serum 0.53 (0.52-1.25); PHOSPHOROUS 3.7 mg/dL (2.5-4.5); POTASSIUM 3.7 mmol/L (3.4-5.0); TOTAL PROTEIN 5.3 gm/dL (6.4-8.2)
[2018-10-22 06:33] LABS: PRE ALBUMIN 17.4 mg/dL (17.6-36.0)
--- NOTE | 2018-10-22 08:00 | NUR ---
Patient in bed resting. Alert and oriented x 3. Shift assessment complete. Tube feeding infusing to peg tube via kangaroo pump. Mother in room. Patient states she feels constipated but refuses laxative. States "it is because we are giving her things that her stomach cannot handle". Educated patient on laxative, continues to refuse. Triple lumen Right IJ noted without complications. Villarreal to dependent drainage with clear yellow urine present. Denies pain or further needs at this time.
--- NOTE | 2018-10-22 16:34 | NUR ---
SW attended clinical rounds. The hospitalist discussed an inpatient treatment center for eating disorders in [place], [place]; to help with refeeding and psych. The patient reports that she would not want to go that far away from family. The hospitalist then discussed goals of care with the patient and she is considering hospice. SW to continue to follow to ensure a safe discharge.
--- NOTE | 2018-10-22 18:10 | NUR ---
Attempted to give patient dose of phospha neutral, patient states she can feel medication coming back up her throat, checked residual, 5ml aspirated.
--- NOTE | 2018-10-22 18:15 | NUR ---
Patient has done well throughout the day, mother at bedside. Denies pain at this time. Tube feedings continued at 15ml per hour. Villarreal maintained to dependent drainage with clear yellow urine in bag. Denies further needs a this time. Will report off to security shift supervisor.
--- NOTE | 2018-10-22 20:00 | NUR ---
See flow sheet for domunented BP at 1954 of 70/40 obtained in left arm manually. heart monitored 48-55 sinus rhythm. Patient alert and anxious. demanding tube feeding be shut off. Mom in room. Dr Tapia notified of BP and request. In to visit with patient and family. Discussed needing fluid bolus and to continue the tube feeding but will turn feeding off if wished. Patient unable to make decesion. Very anxious and states "I can't make decisions. Will not give this nurse a yes or no answer when asked if she wants me to turn feedings off now. Discussed with patient taking ordered IV ativan for anxiety and trying to sleep through the night in order to better make a decision in morning. Patient agreed see EMAR for Ativan administered at 2209 according to order. Patient continues to refuse fluid bolus but agrees to leave feedings as is. Patient repositioned and music turned on. 2229: Patient asleep in bed with eyes closed presents with relaxed body posture and even non labored respiratins. call light within reach.
[2018-10-23 04:08] VITALS: BP 76/50; PULSE 57; TEMP 97.5
[2018-10-23 06:17] LABS: ALBUMIN 2.7 gm/dL (3.5-5.0); BILIRUBIN,TOTAL 0.8 mg/dL (0.0-1.0); CALCIUM 8.5 mg/dL (8.4-10.2); CREATININE, serum 0.54 (0.52-1.25); POTASSIUM 3.6 mmol/L (3.4-5.0); TOTAL PROTEIN 5.1 gm/dL (6.4-8.2)
[2018-10-23 06:31] LABS: EOS % 0.8 % (0-4.0); GRAN # 2.9 (1.4-6.5); GRAN % 74.9 % (42.2-75.2); HEMOGLOBIN 10.4 g/dl (12.5-16.0); LYMPH # 0.5 (1.2-3.4); LYMPH % 13.1 % (20.0-51.0); MEAN CELL VOLUME 94 fl (80.0-100.0); MEAN CORPUSCULAR HEMOGLOBIN 31 pg (27.0-31.0); MEAN CORPUSCULAR HGB CONC 33 g/dl (33.0-37.0); MEAN PLATELET VOLUME 11.3 fl (7.4-10.4); MONO # 0.4 (0.1-0.6); MONO % 10.7 % (1.7-9.3); PLATELET COUNT 163 K/mm3 (130-400); RED BLOOD COUNT 3.31 M/mm3 (4.10-5.30); REDCELL DISTRIBUTION WIDTH-CV 13.3 % (11.5-14.5)
[2018-10-23 06:46] LABS: HEMATOCRIT 31.2 % (37.0-47.0)
[2018-10-23 08:13] VITALS: BP 87/52; PULSE 57; TEMP 98
[2018-10-23 11:45] VITALS: BP 87/54; PULSE 57; TEMP 97.6
--- NOTE | 2018-10-23 12:49 | NUR ---
Half dose of PRN laxative administered through PEG per pt's request.
[2018-10-23 17:08] VITALS: BP 83/53; PULSE 55
--- NOTE | 2018-10-23 17:10 | NUR ---
SW met with the patient and patient's mother during clinical rounds. The hositalist discussed the patient's recovery and her options: eating disorder treatment at [facility], [facility], or hospice. The patient is open to continuing tube feedings and trying oral intake, but still appears hesitant and unsure. Dietary to be consulted. SW to continue to follow.
--- NOTE | 2018-10-23 19:02 | NUR ---
Pt refusing to have tube feeding restarted at this time, states "I think I would like to go home tomorrow for a couple of days then go to Hospice." Pt does ask about IVF's. Physician notified of pt's decision, does not wish to order IVF's.
[2018-10-23 19:26] VITALS: BP 78/54; PULSE 52; TEMP 97.5
--- NOTE | 2018-10-23 19:50 | NUR ---
Report with EMIL Anthony. Pt still refusing tube feeding but concerned about not getting fluids. Pt provided ice chips and encouraged to take water by mouth. This nurse addresses pt's preference for code status per her request to go on Hospice tomorrow. Pt would like to think about it, will notify nurse and physician if decision made. Pt's mother at bedside. Call light in reach.
[2018-10-24 00:09] VITALS: BP 93/52; PULSE 50; TEMP 97.3
--- NOTE | 2018-10-24 00:55 | NUR ---
Report received from EMIL Hunter. Patient resting in bed. Assessment complete. When asked any questions, states "I cannot answer any more questions". TLC patent, flushed. Patient refused night time medications and to restart tube feedings. Patients mother informed this nurse that the patient would like to change her code status in the morning to DNR. Call light within reach.
--- NOTE | 2018-10-24 01:50 | NUR ---
Alyssa reported patient had a blood sugar of 76. Attempted to have patient drink apple juice, but patient refused. No hypoglycemic protocol in place. supervisor tank cleaning suggests to just monitor.
[2018-10-24 04:53] VITALS: BP 81/56; PULSE 51; TEMP 97.4
--- NOTE | 2018-10-24 06:12 | NUR ---
Patient refused all medications, tube feedings, and morning labs. Has been slower to respond. Did agree to take a sip of apple juice. Resting in bed. Call light within reach.
--- NOTE | 2018-10-24 07:01 | NUR ---
Report given to EMIL Hunter.
[2018-10-24 07:44] VITALS: BP 87/53; PULSE 58; TEMP 97.7
--- NOTE | 2018-10-24 08:30 | NUR ---
Assessment complete. Pt resting in bed, A&O x 3 with mom at bedside. Pt continues to refuse medication and treatment at this time. Denies needs or c/o. Triple lumen catheter to right SC without s/s of complications. Villarreal catheter to DD with yellow urine with sediment. Call light in reach.
--- NOTE | 2018-10-24 11:37 | NUR ---
BEBETO attended clinical rounds. Last night, 10/23, to the patient refused tube feeds, medications, and labs. The patient decided that she wanted to pursue hospice. The hospitalist discussed hospice in the home and [facility]. The patient's reports that she would like to return home on hospice, but that she does not want to be a burden to her family. The patient's mother reports that they could try doing hospice in the home. The patient reports that she would rather just then go the hospice house and transition there today. The patient's parents are supportive of this plan. BEBETO provided support. BEBETO contacted and faxed a referral to Kashif at [facility]. BEBETO awaiting their screening.
[2018-10-24 11:45] VITALS: BP 84/52; PULSE 53; TEMP 97.5
[2018-10-24] MEDS ORDERED: ROXANOL 20MG20 MG/ML SL (12:34)
[2018-10-24] MEDS ORDERED: MOTRIN SUSP20 MG/ML PO (12:34)
[2018-10-24] MEDS ORDERED: LORAINT SL (12:37)
[2018-10-24] MEDS ORDERED: ARTIFICIAL TEAR15 M7 OP (12:38)
[2018-10-24] MEDS ORDERED: TRANSDERM-0.5 MG/21 TD (12:39)
[2018-10-24] MEDS ORDERED: DULCOLAX S10 MG/SUPP RC (12:39)
[2018-10-24] MEDS ORDERED: ZOFRAN ODT4 MG PO (12:39)
--- NOTE | 2018-10-24 13:26 | NUR ---
Kashif, at [facility], reports that they can accept the patient at the hospice house today. BEBETO informed the patient, patient's mother, and the PA-C. The patient and her mother would like to pursue with transitioning to the hospice house. The patient is to discharge today, 10/24, to [facility]. Transportation was scheduled for 1430, via [facility]. BEBETO informed the patient, patient's mother, nurse, and [facility]. They were all in agreeance. No additional needs at this time.
--- NOTE | 2018-10-24 14:50 | NUR ---
Triple lumen central line catheter discontinued from right SC per orders using sterile technique. Pressure held for 10 minutes, gauze and tegaderm placed. Report called to nurse at [facility]. Pt discharged to Hospice house via [facility].
== END 2018-10-24 14:50 | disposition hospice, inpatient (51) | DRG 640 ==
LOC: COL.ER 21:08 → MEDICAL 23:32 → ICU 23:32 → MEDICAL 10-18 14:29
PROVIDERS: Emergency Medicine; Internal Medicine Critical Care Medicine; Nurse Practitioner Family; Physician Assistant; Student in an Organized Health Care Education/Training Program; ADMIT Student in an Organized Health Care Education/Training Program
PROC: 02HV33Z Insertion of Infusion Device into Superior Vena Cava, Percutaneous Approach (ICD-10-PCS; principal; 2018-10-14)
PROC: 0DH63UZ Insertion of Feeding Device into Stomach, Percutaneous Approach (ICD-10-PCS; 2018-10-16)
DX: E86.0 Dehydration (principal); E43 Unspecified severe protein-calorie malnutrition; N17.9 Acute kidney failure, unspecified; Z68.1 Body mass index [BMI] 19.9 or less, adult; E87.2 Acidosis; M34.1 CR(E)ST syndrome; I73.00 Raynaud's syndrome without gangrene; R00.1 Bradycardia, unspecified; Z66 Do not resuscitate; R13.10 Dysphagia, unspecified; E16.2 Hypoglycemia, unspecified; E86.1 Hypovolemia; I95.9 Hypotension, unspecified; R74.0 Nonspecific elevation of levels of transaminase and lactic acid dehydrogenase [LDH]; K20.9 Esophagitis, unspecified; K59.00 Constipation, unspecified; R53.81 Other malaise; K21.9 Gastro-esophageal reflux disease without esophagitis; R62.51 Failure to thrive (child); Z88.0 Allergy status to penicillin; Z88.2 Allergy status to sulfonamides
CPT/HCPCS: 99222; 99223-AI; 99232-AI; 99233-AI; A4314; C9113; J0834; J1265; J1720; J2060; J2370; J2704; J3475; J3480; J7030; J7040; J7042; J7050; J7120